=== PATIENT | male | born 1960 | race Caucasian/White ===

== ENCOUNTER 2022-07-08 13:09 | Emergency (ER) | payer OTHER, SELFPAY ==
[2022-07-08 13:26] VITALS: BP 133/81; PULSE 93; RESP 14; TEMP 36.9; O2SAT 98
[2022-07-08] MEDS: TETANUS,DIPHTHERIA,AC PERTUSSIS ADULT (0.5 ML) BOOSTRIX IM (14:03)
--- NOTE | 2022-07-08 14:17 | ED.WOUNDLAC ---
HPI - Wound/Laceration General Chief Complaint: Wound/Laceration Stated Complaint: Right Hand Laceration Time Seen by Provider: 07/08/22 13:40 Source: patient, RN notes reviewed and old records reviewed Mode of arrival: ambulatory Limitations: no limitations History of Present Illness HPI narrative: 61-year-old male presents to the [facility] with complaints of right hand laceration. 5 cm laceration palmar aspect right hand. States that he cut it with a bleed. Unknown last Tdap. Bleeding is controlled. Full range of motion of the thumb in all fingers. Sensation intact. Happened 2 hours prior to arrival Patient tetanus UTD: No Related Data Home Medications Medication Instructions Recorded Confirmed amlodipine 5 mg tablet mg 07/08/22 clopidogrel 75 mg tablet mg 07/08/22 diclofenac sodium 75 mg mg PO 07/08/22 tablet,delayed release empagliflozin 10 mg tablet mg 07/08/22 (Jardiance) glimepiride 2 mg tablet mg 07/08/22 losartan 100 tablet 07/08/22 mg-hydrochlorothiazide 25 mg tablet metoprolol succinate 50 mg mg PO 07/08/22 tablet,extended release 24 hr montelukast 10 mg tablet mg 07/08/22 rosuvastatin 20 mg tablet mg 07/08/22 sitagliptin phosphate 50 tablet 07/08/22 mg-metformin 1,000 mg tablet (Janumet) Allergies Allergy/AdvReac Type Severity Reaction Status Date / Time No Known Allergies Allergy Verified 07/08/22 13:13 Review of Systems Review of Systems: All systems reviewed & are unremarkable except as noted in HPI and below Constitutional: Constitutional: Reports no additional constitutional complaints Eyes: Eyes: Reports no additional eye complaints ENT: Reports system reviewed and no additional complaints, except as documented Cardiovascular: Cardiovascular: Reports no additional cardiovascular complaints, Denies chest pain and Denies dyspnea Respiratory: Respiratory: Reports no additional respiratory complaints, Denies chest congestion, Denies cough and Denies dyspnea Gastrointestinal: Gastrointestinal: Reports no additional gastrointestinal complaints, Denies abdominal pain, Denies nausea and Denies vomiting Musculoskeletal: Musculoskeletal: Reports as per HPI Integumentary/Breasts: Skin/Breast: Reports system reviewed and no additional complaints, except as docu Neurologic: Reports system reviewed and no additional complaints, except as documented Psychiatric: Psychiatric: Reports no additional psychiatric complaints Allergic/Immunologic: Allergic/Immunologic: Reports no additional allergic/immunologic complaints PMFSH Comments At the time of my signature, I reviewed and agree with the nursing past medical, surgical, social, and family history. There is no relevant family history pertinent to the patient complaint. Exam Const: General: cooperative, healthy appearing, comfortable, no acute distress, well developed, alert and well nourished Nutritional Appearance: well nourished Orientation/consciousness: patient oriented x3 Limitations: no limitations HENMT: Head: normal to inspection Ears: hearing grossly normal bilaterally and external ears normal Face/Nose/Sinus: Normal external nose present, Normal nares present, Normal nasal mucous membranes and turbinates present and normal facial exam Face and sinus: normal facial exam Eyes: General: appearance normal, both eyes and all related structures Alignment and Position: alignment normal Periorbital: periorbital findings normal Pupils: Equal, round and reactive pupils present EOM: EOMs intact bilaterally Neck: Neck: normal visual inspection, full ROM, no lymphadenopathy and no meningeal signs Chest: Chest palpation & inspection: normal inspection of the chest Resp: Effort & Inspection: normal respiratory effort and able to speak in complete sentences Auscultation: clear to auscultation bilaterally, no crackles, no rales, no rhonchi and no wheezes Cardio: Rate: regular rate Rhythm: regular rhythm Back/Spi
== END 2022-07-08 14:24 | disposition home or self-care (01) ==
PROVIDERS: Emergency Provider Nurse Practitioner; PCP Nurse Practitioner Family
DX: S61.411A Laceration without foreign body of right hand, initial encounter (principal); W26.9XXA Contact with unspecified sharp object(s), initial encounter; Z23 Encounter for immunization; I25.10 Atherosclerotic heart disease of native coronary artery without angina pectoris; E78.00 Pure hypercholesterolemia, unspecified; I10 Essential (primary) hypertension; I25.2 Old myocardial infarction; Z95.5 Presence of coronary angioplasty implant and graft
CPT/HCPCS: 12002; 90471; 90715; 99202; G0463

== ENCOUNTER 2023-03-04 11:40 | Emergency (ER) | payer OTHER, SELFPAY ==
[2023-03-04 12:00] VITALS: BP 160/85; PULSE 92; RESP 20; TEMP 36.7; O2SAT 100
--- NOTE | 2023-03-04 12:13 | ED.WOUNDLAC ---
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 States he pushed the tooth back into place. Denies LOC, headache, neck pain, dizziness, n/v, or any other injury. Tetanus it UTD. Related Data Home Medications Medication Instructions Recorded Confirmed amlodipine 5 mg tablet mg 07/08/22 clopidogrel 75 mg tablet mg 07/08/22 diclofenac sodium 75 mg mg PO 07/08/22 tablet,delayed release empagliflozin 10 mg tablet mg 07/08/22 (Jardiance) glimepiride 2 mg tablet mg 07/08/22 losartan 100 tablet 07/08/22 mg-hydrochlorothiazide 25 mg tablet metoprolol succinate 50 mg mg PO 07/08/22 tablet,extended release 24 hr montelukast 10 mg tablet mg 07/08/22 rosuvastatin 20 mg tablet mg 07/08/22 sitagliptin phosphate 50 tablet 07/08/22 mg-metformin 1,000 mg tablet (Janumet) Allergies Allergy/AdvReac Type Severity Reaction Status Date / Time No Known Allergies Allergy Verified 07/08/22 13:13 Review of Systems Review of Systems: CONSTITUTIONAL: Denies body aches, fever, chills ENT: Denies rhinorrhea, congestion, sore throat, or otalgia. Reports dental pain and lip lac CARDIOVASCULAR: Denies chest pain, palpitations RESPIRATORY: Denies cough or dyspnea. SKIN: Denies rash, itching, or wounds. MUSCULOSKELETAL: Denies myalgia. NEUROLOGIC: Denies headache, numbness, tingling, or weakness. [facility] Past Medical History Medical History (Updated 03/04/23 @ 14:21 by Xiomara Coe APRN) CAD (coronary artery disease) Diabetes History of PTCA 2 Comments At time of signature, I have reviewed and agree with nursing past medical, surgical, social and family history unless otherwise noted. Please see nursing chart for further information. There is no relevant family history pertinent to the presenting complaint Exam Narrative: GENERAL: Appears in mild pain; no acute distress. EYES: EOMI. No redness or drainage. ENT: Dental fracture location of #7, transverse fracture of the tooth noted, remains intact. Right lower lip laceration with avulsion, bleeding controlled, clean. Total area about 1.5 cm, no indication for suture, no through and through, no involvement of ana border. Mucous membranes pink and moist. TMs normal bilaterally. Throat normal. Uvula midline. NECK: Normal AROM. CHEST: No respiratory distress. Clear to auscultation. HEART: Regular rate and rhythm. No murmur appreciated. SKIN: Warm, dry. NEURO: No focal deficits. Alert and oriented x3. Gait steady. HENMT: Mouth/tongue images: 1. area of avulsion and laceration Teeth image: 1. area of fractured tooth Course Course Emergency Course: Patient is aware of diagnosis, understands and agrees to treatment plan. Anticipatory guidance given. Patient agrees to follow-up as directed and is aware of reasons to seek care at the emergency department. Portions of this record may have been created with voice recognition software Level of Care: Express Care Visit Vital Signs Vital signs: Vital Signs Temperature 98.1 F 03/04/23 12:00 Pulse Rate 92 03/04/23 12:00 Respiratory Rate 20 03/04/23 12:00 Blood Pressure 160/85 H 03/04/23 12:00 Pulse Oximetry 100 03/04/23 12:00 Oxygen Delivery Room Air 03/04/23 12:00 Temperature 98.1 F 03/04/23 12:00 Pulse Rate 92 03/04/23 12:00 Respiratory Rate 20 03/04/23 12:00 Blood Pressure 160/85 H 03/04/23 12:00 Pulse Oximetry 100 03/04/23 12:00 Oxygen Delivery Room Air 03/04/23 12:00 MDM - Wound/Laceration MDM Narrative Medical decision making narrative: Pt present
== END 2023-03-04 12:48 | disposition home or self-care (01) ==
PROVIDERS: Emergency Provider Nurse Practitioner Family; PCP Nurse Practitioner Family
DX: S01.511A Laceration without foreign body of lip, initial encounter (principal); S02.5XXA Fracture of tooth (traumatic), initial encounter for closed fracture; W01.198A Fall on same level from slipping, tripping and stumbling with subsequent striking against other object, initial encounter; I25.10 Atherosclerotic heart disease of native coronary artery without angina pectoris; E11.9 Type 2 diabetes mellitus without complications; Z95.5 Presence of coronary angioplasty implant and graft
CPT/HCPCS: 99212; G0463

== ENCOUNTER 2024-01-05 08:58 | Outpatient (CLI) | payer OTHER, SELFPAY | END 2024-01-05 08:59 | disposition home or self-care (01) | PROVIDERS: PCP Nurse Practitioner Family; Visit Provider Nurse Practitioner | DX: E11.9 Type 2 diabetes mellitus without complications (principal) | CPT/HCPCS: 36415; 83036 ==

== ENCOUNTER 2024-05-17 09:48 | Outpatient (CLI) | payer OTHER, SELFPAY ==
--- OUTSIDE RECORDS SUMMARY | 2024-05-17 10:35 | XMS_ITS | Continuity of Care Document ---
Author Organization [facility] Address [address] [place] [address] Phone Care Team Providers Care It Support Technician Name Role Phone Dalton OD, Rakan Unavailable Unavailable Procedures Procedure Date Eye Exam & Treatment Refraction Eye Exam & Treatment Refraction Optic Nerve Topography Advance Directives Directive Yes / No Effective Date File Name No Information Encounters Encounter Description Practice Location Reason(s) For Visit Diagnoses Date Provider Providers Copied on Encounter [facility], [id number] [place] [address] [address], [place], [place], [id number], tel:[phone] [facility] No Information 5-201 0 Dalton OD Rakan. [address] [facility], [place], [place], [facility], . tel:[phone] [facility], [address] [place] [address] [address], [place], [place], [id number], tel:[phone] [facility] No Information 4-200 7 Dalton OD Rakan. [address], [place], [address], [place]. tel:[phone] Referring Provider: Rakan Rodrigez, [address], [place], [address]. tel:[phone] Family History Family Member Type Diagnosis Age At Onset No Information Payers Payer name Insurance type Covered alliance party ID Authorcarlito rebolledo(s) [employer] SOI CI [id number] Social History Type Description Quantity Date Captured Comments Sex Male Smoking Status No Information Chief Complaint And Reason For Visit No Information Reason For Referral Reason For Referral No Information History Of Present Illness Encounter Date Complaint History Of Prese nt Illness No Information Functional Status Date Functional Assessmen t No Information Instructions Date Instruction Additional Infor mation No Information Assessments Type Assessment Date No Information Patient Care Teams Name Effective Dates (start - stop) Status Members No Information
--- OUTSIDE RECORDS SUMMARY | 2024-05-17 10:35 | XMS_ITS | CONTINUITY OF CARE DOCUMENT ---
Author Name teresa moore Address Unknown Organization [facility] Address [address] [place] [address] Phone [phone] Care Team Providers Care Supervisor Coil Winding Name Role Phone Jose Skaggs MD Unavailable [phone] CARLENE BECERRA MD Unavailable CARLENE BECERRA MD Unavailable [phone] PROBLEMS Condition Status Date Provider Notes CAD S/P STENT TO THE RCA. active Jose byrd MD HTN ESSENTIAL active ? Jose Skaggs MD Hyperlipidemia - PER DR ARECHIGA active Jose Skaggs MD Family History of Hypertension: active ? Anna Skaggs MD Family History of CVA or Stroke: active ? Claudia Skaggs MD Family History of Hypertension: active ? Anna Skaggs MD Diabetes mellitus active Jose Skaggs MD ENCOUNTERS Date Type Provider Location Encounter Diag nosis - In-person encounter Office Visit Jose Skaggs MD [place] [facility] - In-person encounter Office Visit Jose Skaggs MD [place] [facility] - In-person encounter Office Visit Jose Skaggs MD [place] [facility] - In-person encounter Office Visit Jose Skaggs MD [place] [facility] - In-person encounter Office Visit Jose Skaggs MD [place] [facility] - In-person encounter Office Visit Jose Skaggs MD [place] [facility] - In-person encounter Office Visit Jose Skaggs MD [place] [facility] - In-person encounter Office Visit Jose Skaggs MD [place] [facility] Hyperlipidemia - PER DR Dong History of Hypertension:Family History of CVA or Stroke:Family History of Hypertension:Diabetes mellitus - In-person encounter Office Visit Jose Skaggs MD [place] [facility] - In-person encounter Office Visit Jose Skaggs MD [place] [facility] - In-person encounter Office Visit Jose Skaggs MD [place] [facility] CAD S/P STENT TO THE RCA.HTN ESSENTIALHyperlipidemia - PER DR ARECHIGA VITAL SIGNS Date Observation Value Provider Body Mass Index (Ratio) 28.89 kg/m2 Anna Skaggs MD blood pressure, diastolic 87 mm[Hg] Adriane nkLogjunaid blood pressure, systolic 146 mm[Hg] Asha [facility] blood pressure, cuff size regular Ruy blood pressure, diastolic 87 mm[Hg] Ruy mirela blood pressure, systolic 146 mm[Hg] Adam machado pulse rate 100 /min Eduardo oxygen saturation, oximetry 97 % respiratory rate E&M 12 /min Eduardo weight E&M 190 [lb_av] Eduardo height E&M 68 [in_i] Eduardo Body Mass Index (Ratio) 28.76 kg/m2 Anna Skaggs MD blood pressure, diastolic 86 mm[Hg] St ulises Saldivar blood pressure, systolic 120 mm[Hg] Anita zhang Yariel oxygen saturation, oximetry 96 % Gale Yariel pulse rate 97 /min Gale Yariel respiratory rate E&M 18 /min Gale Jay Jay mirza weight E&M 189.2 [lb_av] Gale Yariel height E&M 68 [in_i] Galevicente Saldivar Body Mass Index (Ratio) 29.34 kg/m2 Anna Skaggs MD blood pressure, diastolic 78 mm[Hg] ulises Yariel blood pressure, systolic 136 mm[Hg] Anita zhang Yariel oxygen saturation, oximetry 96 % Gale Yariel pulse rate 93 /min Gale Yariel respiratory rate E&M 18 /min Gale Jay Jay blue weight E&M 193 [lb_av] Gale Yariel height E&M 68 [in_i] Galevicente Saldivar Body Mass Index (Ratio) 29.80 kg/m2 Anna Skaggs MD blood pressure, cuff size large Ke rri Kyara blood pressure, diastolic 80 mm[Hg] Ke rri Kyara blood pressure, systolic 120 mm[Hg] Orin Sparrow oxygen saturation, oximetry 98 % Angelita Sparrow respiratory rate E&M 14 /min Angelita gonzales pulse rate 93 /min Angelita berry weight E&M 196 [lb_av] Angelita Hardy lddmitry height E&M 68 [in_i] Angelita berry Body Mass Index (Ratio) 29.95 kg/m2 Anna Skaggs MD weight E&M 197 [lb_av] Jose Skaggs MD blood pressure, diastolic 86 mm[Hg] Li nkLogic blood pressure, systolic 153 mm[Hg] Asha kLog blood pressure, diastolic 86 mm[Hg] Dilcia iyer Harvey blood pressure, systolic 153 mm[Hg] Kurtis armenta Harvey pulse rate 100 /min Soila goyal oxygen saturation, oximetry 96 % Soila Breaux respiratory rate E&M 16 /min Thelma chau Harvey blood pressure, cuff size large Dilcia iyer Harvey height E&M 68 [in_i] Soila goyal Body Mass Index (Ratio) 30.71 kg/m2 Anna Skaggs MD weight E&M 202 [lb_av] Shelley Singh blood pressure, diastolic 82 mm[Hg] Er ica Meharn blood pressure, systolic 124 mm[Hg] Mercedez dyllan Laurent oxygen saturation, oximetry 96 % Shelley Laurent pulse rate 95 /min Shelley Singh height E&M 68 [in_i] Shelley Singh Body Mass Index (Ratio) 31.17 kg/m2 Anna Skaggs MD blood pressure, cuff size regular Ke rri Kyara blood pressure, diastolic 90 mm[Hg] Ke rri Kyara blood pressure, systolic 156 mm[Hg] Orin Sparrow oxygen saturation, oximetry 98 % Angelita Sparrow respiratory rate E&M 20 /min Angelita gonzales pulse rate 97 /min Angelita berry weight E&M 205 [lb_av] Angelita berry height E&M 68 [in_i] Angelita montezer Body Mass Index (Ratio) 31.56 kg/m2 Anna Skaggs MD blood pressure, resting Yes Dona Heredia blood pressure, diastolic 99 mm[Hg] Shorty Heredia blood pressure, systolic 153 mm[Hg] Delicia Heredia oxygen saturation, oximetry 97 % Radha Heredia respiratory rate E&M 16 /min Primitivo Heredia pulse rate 92 /min Radha Powell sherrycheryl weight E&M 207.6 [lb_av] Radha dudleyon height E&M 68 [in_i] Radha Powell sherrycheryl blood pressure, diastolic 100 mm[Hg] Ruy Blanco RN blood pressure, systolic 162 mm[Hg] David Blanco RN pulse rate 105 /min David Blanco RN oxygen saturation, oximetry 96 % David Blanco RN respiratory rate E&M 20 /min David santos RN Body Mass Index (Ratio) 33.02 kg/m2 David Blanco RN weight E&M 216.4 [lb_av] David Blanco RN Body Mass Index (Ratio) 30.06 kg/m2 Sánchez i Kyara blood pressure, diastolic 74 mm[Hg] Ke rri Kyara blood pressure, systolic 122 mm[Hg] Orin ri Kyara pulse rate 86 /min Angelita Hayley montezer oxygen saturation, oximetry 98 % Angelita Sparrow respiratory rate E&M 17 /min Angelita gonzales weight E&M 197 [lb_av] Angelita montezer height E&M 68 [in_i] Angelita Hardy lder blood pressure, diastolic 72 mm[Hg] Jazmin seph [place] blood pressure, systolic 120 mm[Hg] Cesar eph [place] pulse rate 85 /min [facility] oxygen saturation, oximetry 99 % [facility] respiratory rate E&M 16 /min [facility] weight E&M 202.8 [lb_av] [facility] ALLERGIES Allergy Name Onset Date Reaction Criticality Status SEPTRA Low Criticality active SULFA Low Criticality active RESULTS Date Observation Value Provider Reference Range Interpretation Location microalbumin/creatin ine ratio, urine 11.8 MG/G CREAT [facility] 0.0-30.0 microalbumin, random, urine 1.43 mg/dL [facility] Units converted. See lab report for original value. creatinine, random, urine 121.2 mg/dL [facility] Not Estab. calcium, serum 8.9 mg/dL [facility] 8.7-10.2 carbon dioxide, venous blood 27 mmol/L [facility] 18-29 chloride, serum 96 mmol/L [facility] 96-106 potassium, serum 3.6 mmol/L [facility] 3.5-5.2 sodium, serum 138 mmol/L [facility] 771-201 7920/02/ 09 urea nitrogen/creatinine ratio, serum 15 [facility] 9-20 eGFR if not 85 mL/min/{1 .73_m2} [facility] >59 creatinine, serum 0.98 mg/dL [facility] 0.76-1.27 urea nitrogen, blood 15 mg/dL [facility] 6-24 blood glucose, random 149 mg/dL [facility] 65-99 High lipoprotein, beta, serum, point, quantitative, calculated 115 mg/dL Yulisa Burnham cholesterol, serum 192 mg/dL Yulisa Burnham thyroid stimulating hormone, serum 0.536 u[IU]/mL [facility] alanine aminotransferase (SGPT), serum 33 1/L [facility] aspartate aminotransferase (SGOT), serum 27 1/L [facility] creatinine, serum 0.99 mg/dL [facility] potassium, serum 4.0 mmol/L [facility] sodium, serum 139 mmol/L [facility] platelet count 193 10*3/mm3 [facility] hematocrit, blood 40.3 % [facility] B-type natriuretic peptide 15.9 pg/mL [facility] alanine aminotransferase (SGPT), serum 40 1/L [facility] aspartate aminotransferase (SGOT), serum 24 1/L [facility] creatinine, serum 0.86 mg/dL [facility] potassium, serum 3.4 mmol/L [facility] sodium, serum 137 mmol/L [facility] HISTORY OF MEDICATION USE Medication Status Instructions Dates Provider Indications Com ments clopidogrel 75 mg tablet active Take 1 tablet by mouth once a day Angelita Sparrow rosuvastatin 20 mg tablet active Take 1 tablet by mouth once a day Angelita Sparrow Jardiance 10 mg tablet active 1 tablet by mouth once a day TAKE 1 TABLET BY MOUTH ONCE A DAY Jose Skaggs MD diclofenac sodium 75 mg tablet,delayed release (DR/EC) active Pam SCRUGGS clopidogrel 75 mg tablet completed - Angelita Sparrow rosuvastatin 20 mg tablet completed - Angelita Sparrow losartan-hydroc hlorothiazide 100-25 mg tablet active Soila Breaux montelukast 10 mg tablet active Soila Breaux amlodipine 5 mg tablet active Soila Breaux Norvasc 5 mg tablet completed 1 tablet once a day - Soila Breaux Janumet 50-1,000 mg tablet active twice a day Radha Heredia glimepiride 2 mg tablet active twice a day Radha Yan Hyzaar 100-25 mg tablet completed 1 tablet by mouth once a day - Soila Saeid atorvastatin 20 mg tablet completed 1 tablet once a day - Pam SCRUGGS EFFIENT 10 MG ORAL TABLET completed One tablet daily - Jose Skaggs MD metoprolol succinate 100 mg tablet extended release 24 hr active 1 tablet by mouth once a day Jose Skaggs MD ASPIRIN 81 MG ORAL TABLET active 1 tablet once a day David Blanco RN SOCIAL HISTORY Date Observation Value Provider drug use no Jose Skaggs MD alcohol use, average drinks per day 3 /d Jose Skaggs MD alcohol use, type beer Jose byrd MD alcohol use yes Jose Skaggs MD passive cigarette sm vishal exposure no Jose Skaggs MD smoking status Never smoker Jose Skaggs MD social history reviewed E&M revi ewed - no changes required Jose Skaggs MD drug use no Jose Skaggs MD alcohol use, average drinks per day 3 /d Jose Skaggs MD alcohol use, type beer Jose byrd MD alcohol use yes Jose Skaggs MD social history E&M Marital Statu s: L trinidad alone E thnicity: P atmeghana has never smoked. Smoking History: P atmeghana has never smoked. Jose Skaggs MD physical exercise, frequency, days per week no Gale Saldivar caffeine use, averag e drinks per day yes Gale Saldivar passive cigarette sm vishal exposure no Gale Saldivar smoking status Never smoker Gale Saldivar drug use no Pam SCRUGGS alcohol use, type beer Pamyohan eslf [facility] alcohol use, average drinks per day 3 /d Pam Ventimiglia [facility] alcohol use yes Pam Zhaog ellie [facility] physical exercise, frequency, days per week no Gale Yariel caffeine use, averag e drinks per day yes Gale Yariel passive cigarette sm vishal exposure no Gale Yariel smoking status Never smoker Aglevicente Saldivar social history E&M Marital Statu s: L trin[place] alone E thnicity: P mauro has never smoked. Smoking History: Tc wade has never smoked. Jose Skaggs MD social history reviewed E&M revi ewed - no changes required Jose Skaggs MD physical exercise, frequency, days per week no Angelita Sparrow caffeine use, averag e drinks per day yes Angelita Sparrow passive cigarette sm vishal exposure no Angelita Sparrow smoking status Never smoker Angelita Moira martin social history E&M Marital Statu s: L trinidad alone E thnicity: Tc wade has never smoked. Smoking History: Tc wade has never smoked. Jose Skaggs MD social history reviewed E&M revi ewed - no changes required Jose Skaggs MD physical exercise, frequency, days per week no Soila Breaux caffeine use, averag e drinks per day yes Soila Breaux passive cigarette sm vishal exposure no Soila Breaux smoking status Never smoker Soila Helton drug use no Jose Skaggs MD alcohol use, average drinks per day social Jose Skaggs MD alcohol use yes Jose Skaggs MD social history E&M Marital Statu s: L trinidad alone E thnicity: P atmeghana has never smoked. Smoking History: P atmeghana has never smoked. Jose Skaggs MD physical exercise, frequency, days per week no Shelley Laurent caffeine use, averag e drinks per day yes Shelley Laurent passive cigarette sm vishal exposure no Shelley Laurent smoking status Never smoker Shelley Cummins social history reviewed E&M revi ewed - no changes required Shelley Laurent smoking status Never smoker Jose Skaggs MD social history E&M Marital Statu s: L tr[place] alone E thnicity: P mauro has never smoked. Smoking History: P atmeghana has never smoked. Jose Skaggs MD social history reviewed E&M revi ewed - no changes required Jose Skaggs MD physical exercise, frequency, days per week no Angelita Sparrow alcohol use, average drinks per day 1-3 drinks per day Angelita Sparrow alcohol use no Angelita berry caffeine use, averag e drinks per day yes Angelita Sparrow drug use no Angelita berry passive cigarette sm vishal exposure no Angelita Sparrow number of grandchildren Jose Skaggs MD U marleni Skaggs MD social history E&M Marital Statu s: L trinidad alone E thnicity: P atmeghana has never smoked. Smoking History: P atmeghana has never smoked. Jose Skaggs MD social history reviewed E&M revi ewed - no changes required Jose Skaggs MD physical exercise, frequency, days per week no Radha Heredia alcohol use, average drinks per day 1-3 drinks per day Radha Heredia alcohol use no Radha Powell sherrycheryl caffeine use, averag e drinks per day yes Radha Heredia drug use no Radha Powell sherryon passive cigarette sm vishal exposure no Radha Heredia smoking status Never smoker Jose Skaggs MD social history reviewed E&M reviewed David Blanco RN social history reviewed E&M reviewed David Blanco RN drug use no Angelita Trevinokassidychau lder passive cigarette sm vishal exposure no Angelita Kyara smoking status never smoker Angelita martin social history E&M Marital Statu s: L trin[place] alone E thnicity: David Blanco RN social history reviewed E&M reviewed David Blanco RN physical exercise, frequency, days per week no [facility] caffeine use, averag e drinks per day yes [facility] alcohol use, average drinks per day 1-3 drinks per day [facility] smoking status Non-smoker Link[facility] FUNCTIONAL STATUS Date Observation Value Provider HRA, CV Assess/Plan, Angina (inactive) Management Plan continue current therapy Jose Skaggs MD HRA, CV Assess/Plan, Angina (inactive) Management Plan continue current therapy Jose Skaggs MD HRA, CV Assess/Plan, Angina (inactive) Management Plan continue current therapy Pam Washingtonmiglcarley FASHION DESIGN PROFESSOR HRA, CV Assess/Plan, Angina (inactive) Management Plan continue current therapy Jose Skaggs MD HRA, CV Assess/Plan, Angina (inactive) Management Plan continue current therapy Jose Skaggs MD HRA, CV Assess/Plan, Angina (inactive) Management Plan continue current therapy Jose Skaggs MD HRA, CV Assess/Plan, Angina (inactive) Management Plan continue current therapy Jose Skaggs MD MENTAL STATUS Date Observation Value Provider assessment of judgme nt and insight E&M Alert and oriented to time, place and person. Mood and affect are normal. David Blanco RN assessment of judgme nt and insight E&M Alert and oriented to time, place and person. Mood and affect are normal. David Blanco RN assessment of judgme nt and insight E&M Alert and oriented to time, place and person. Mood and affect are normal. David Blanco RN FAMILY HISTORY Family Member Condition Father Family History of Hy pertension: Father Family History of CV A or Stroke: Mother Family History of Hy pertension: Mother Family History of Di abetes: INSURANCE PROVIDERS Payer name Policy type / Coverage type Amery red libertarian ID [email or web address] [id number] ADVANCE DIRECTIVES Name Date DISCUSSED - NO DECISION MADE TREATMENT PLAN Date Name Performer [id number],C,s/p recent st ent continue dapt Jose Skaggs MD [id number],S, B P today: 120/86 P rior BP: 136/78 (06/09/2022) Labs Reviewed: C reat: 0.98 (03/31/2017) C hol: 192 (03/07/2012) Jose Skaggs MD [id number],C,will check hi s Jose Skaggs MD [id number],C,w ill recheck labs and he is more stringent about diet and is taking Jardiance 10 and other meds Jose Skaggs MD [id number],C,c ontrolled H is updated medication list for this problem includes: Losartan-hydrochlorothiazide 100-25 Mg Tablet (Losartan-hydrochlorothiazide) Amlodipine 5 Mg Tablet (Amlodipine) Metoprolol Succinate 100 Mg Tablet Extended Release 24 Hr (Metoprolol succinate) ..... 1 tablet by mouth once a day Pam Andrey FASHION DESIGN PROFESSOR [id number],C,W ith uncontrolled fasting blood sugars. Glucose was over 250 in the hospital and reports fasting sugars 170-200. Given his CAD he is a good candidate for Jardiance will add to his regimen. Have asked him to follow with PCP for further management. Instructed patient should fasting sugar drop below 120 to decrease glimipiride to daily. Will f/u in 3 mos or sooner if needed. H is updated medication list for this problem includes: Jardiance 10 Mg Tablet (Empagliflozin) ..... 1 tablet by mouth once a day take 1 tablet by mouth once a day Losartan-hydrochlorothiazide 100-25 Mg Tablet (Losartan-hydrochlorothiazide) Glimepiride 2 Mg Tablet (Glimepiride) ..... Twice a day Janumet 50-1,000 Mg Tablet (Sitagliptin phos-metformin) ..... Twice a day Pam Andrey [facility] [id number],C,w ith uncontrolled triglycerides. [facility] x 1 week. Will continue and will f/u in 3 months with lipid panel prior to that visit T he following medications were removed from the medication list: Atorvastatin 20 Mg Tablet (Atorvastatin) ..... 1 tablet once a day His updated medication list for this problem includes: Rosuvastatin 20 Mg Tablet (Rosuvastatin) Pamyohan Washingtonwen [facility] [id number],C,W ith cath 05/25/22. Patent stent to RCA. He had 80% stenosis to OM1 s/p LUTHER. EF of 55-60%. He is doing well. Remains on asa, plavix and statin H is updated medication list for this problem includes: Clopidogrel 75 Mg Tablet (Clopidogrel) Amlodipine 5 Mg Tablet (Amlodipine) Metoprolol Succinate 100 Mg Tablet Extended Release 24 Hr (Metoprolol succinate) ..... 1 tablet by mouth once a day Pam Andrey [facility] [id number],C, B P today: 120/80 P rior BP: 153/86 (03/24/2022) Labs Reviewed: C reat: 0.98 (03/31/2017) C hol: 192 (03/07/2012) His updated medication list for this problem includes: Losartan-hydrochlorothiazide 100-25 Mg Tablet (Losartan-hydrochlorothiazide) Amlodipine 5 Mg Tablet (Amlodipine) Metoprolol Succinate 100 Mg Tablet Extended Release 24 Hr (Metoprolol succinate) ..... 1 tablet by mouth once a day Jose Skaggs MD [id number],C,H ad chest pain, had abnormal stress test, and I would recommend cardiac cath. Jose Skaggs MD [id number],C, T he following medications were removed from the medication list: Hyzaar 100-25 Mg Tablet (Losartan-hydrochlorothiazide) ..... 1 tablet by mouth once a day His updated medication list for this problem includes: Janumet 50-1000 Mg Oral Tablet (Sitagliptin-metformin hcl) ..... Twice daily Glimepiride 2 Mg Oral Tablet (Glimepiride) ..... Twice daily Aspirin 81 Mg Oral Tablet (Aspirin) ..... One tab. daily Hyzaar 100-25 Mg Oral Tablet (Losartan potassium-hctz) ..... 1 tablet by mouth daily Jose Skaggs MD [id number],C, H is updated medication list for this problem includes: Atorvastatin Calcium 20 Mg Oral Tablet (Atorvastatin calcium) ..... One tab daily Jose Skaggs MD [id number],C, B P today: 153/86 P rior BP: 124/82 (12/20/2018) Labs Reviewed: C reat: 0.98 (03/31/2017) C hol: 192 (03/07/2012) The following medications were removed from the medication list: Norvasc 5 Mg Tablet (Amlodipine) ..... 1 tablet once a day Hyzaar 100-25 Mg Tablet (Losartan-hydrochlorothiazide) ..... 1 tablet by mouth once a day His updated medication list for this problem includes: Norvasc 5 Mg Oral Tablet (Amlodipine besylate) ..... One tab. daily Aspirin 81 Mg Oral Tablet (Aspirin) ..... One tab. daily Hyzaar 100-25 Mg Oral Tablet (Losartan potassium-hctz) ..... 1 tablet by mouth daily Metoprolol Succinate Er 100 Mg Oral Tablet Extended Release 24 Hour (Metoprolol succinate) ..... 1 tab po day Jose Skaggs MD [id number],C, H ad an episode of chest pain with SOB and would benefit from a stress nuclear study. Has had an abnormal EKG at baseline. Has a chance of having a false positive stress test, therefore we should proceed with a nuclear scan. Jose Skaggs MD Cardiology: H is updated medication list for this problem includes: Losartan-hydrochlorothiazide 100-25 Mg Tablet (Losartan-hydrochlorothiazide) Amlodipine 5 Mg Tablet (Amlodipine) Metoprolol Succinate 100 Mg Tablet Extended Release 24 Hr (Metoprolol succinate) ..... 1 tablet by mouth once a day BP today: 146/87 P rior BP: 120/86 (09/08/2022) Labs Reviewed: Creat: 0.98 (03/31/2017) C hol: 192 (03/07/2012) LDL: 115 (03/07/2012) Jose Skaggs MD Cardiology:stable, n o angina, continue asa and plavix h ad PCI in May 2022 Jose Skaggs MD Cardiology:The patie nt is on a statin H is updated medication list for this problem includes: Rosuvastatin 20 Mg Tablet (Rosuvastatin) Jose Skaggs MD Cardiology:edgar noguera, patient needs PCP for better management H e would benefit from a continuous glucose monitor Jose Skaggs MD Cardiology:s/p recent stent cont inue dapt Jose Skaggs MD Cardiology: B P today: 120/86 P rior BP: 136/78 (06/09/2022) Labs Reviewed: C reat: 0.98 (03/31/2017) C hol: 192 (03/07/2012) Jose Skaggs MD Cardiology:will check his Jose Skaggs MD Cardiology:will rech sofía labs and he is more stringent about diet and is taking Jardiance 10 and other meds Jose Skaggs MD Cardiology:controlle jay jay H is updated medication list for this problem includes: Losartan-hydrochlorothiazide 100-25 Mg Tablet (Losartan-hydrochlorothiazide) Amlodipine 5 Mg Tablet (Amlodipine) Metoprolol Succinate 100 Mg Tablet Extended Release 24 Hr (Metoprolol succinate) ..... 1 tablet by mouth once a day Pamyohan Balderas [facility] Cardiology:With unco ntrolled fasting blood sugars. Glucose was over 250 in the hospital and reports fasting sugars 170-200. Given his CAD he is a good candidate for Jardiance will add to his regimen. Have asked him to follow with PCP for further management. Instructed patient should fasting sugar drop below 120 to decrease glimipiride to daily. Will f/u in 3 mos or sooner if needed. H is updated medication list for this problem includes: Jardiance 10 Mg Tablet (Empagliflozin) ..... 1 tablet by mouth once a day take 1 tablet by mouth once a day Losartan-hydrochlorothiazide 100-25 Mg Tablet (Losartan-hydrochlorothiazide) Glimepiride 2 Mg Tablet (Glimepiride) ..... Twice a day Janumet 50-1,000 Mg Tablet (Sitagliptin phos-metformin) ..... Twice a day Pamyohan Balderas [facility] Cardiology:with unco ntrolled triglycerides. [facility] 1 week. Will continue and will f/u in 3 months with lipid panel prior to that visit T he following medications were removed from the medication list: Atorvastatin 20 Mg Tablet (Atorvastatin) ..... 1 tablet once a day His updated medication list for this problem includes: Rosuvastatin 20 Mg Tablet (Rosuvastatin) Pamyohan Balderas [facility] Cardiology:With cath 05/25/22. Patent stent to RCA. He had 80% stenosis to OM1 s/p LUTHER. EF of 55-60%. He is doing well. Remains on asa, plavix and statin H is updated medication list for this problem includes: Clopidogrel 75 Mg Tablet (Clopidogrel) Amlodipine 5 Mg Tablet (Amlodipine) Metoprolol Succinate 100 Mg Tablet Extended Release 24 Hr (Metoprolol succinate) ..... 1 tablet by mouth once a day Pam Balderas FASHION DESIGN PROFESSOR Cardiology: B P today: 120/80 P rior BP: 153/86 (03/24/2022) Labs Reviewed: C reat: 0.98 (03/31/2017) C hol: 192 (03/07/2012) His updated medication list for this problem includes: Losartan-hydrochlorothiazide 100-25 Mg Tablet (Losartan-hydrochlorothiazide) Amlodipine 5 Mg Tablet (Amlodipine) Metoprolol Succinate 100 Mg Tablet Extended Release 24 Hr (Metoprolol succinate) ..... 1 tablet by mouth once a day Jose Skaggs MD Cardiology:Had chest pain, had abnormal stress test, and I would recommend cardiac cath. Jose Skaggs MD Cardiology: T he following medications were removed from the medication list: Hyzaar 100-25 Mg Tablet (Losartan-hydrochlorothiazide) ..... 1 tablet by mouth once a day His updated medication list for this problem includes: Janumet 50-1000 Mg Oral Tablet (Sitagliptin-metformin hcl) ..... Twice daily Glimepiride 2 Mg Oral Tablet (Glimepiride) ..... Twice daily Aspirin 81 Mg Oral Tablet (Aspirin) ..... One tab. daily Hyzaar 100-25 Mg Oral Tablet (Losartan potassium-hctz) ..... 1 tablet by mouth daily Jose Skaggs MD Cardiology: H is updated medication list for this problem includes: Atorvastatin Calcium 20 Mg Oral Tablet (Atorvastatin calcium) ..... One tab daily Jose Skaggs MD Cardiology: B P today: 153/86 P rior BP: 124/82 (12/20/2018) Labs Reviewed: C reat: 0.98 (03/31/2017) C hol: 192 (03/07/2012) The following medications were removed from the medication list: Norvasc 5 Mg Tablet (Amlodipine) ..... 1 tablet once a day Hyzaar 100-25 Mg Tablet (Losartan-hydrochlorothiazide) ..... 1 tablet by mouth once a day His updated medication list for this problem includes: Norvasc 5 Mg Oral Tablet (Amlodipine besylate) ..... One tab. daily Aspirin 81 Mg Oral Tablet (Aspirin) ..... One tab. daily Hyzaar 100-25 Mg Oral Tablet (Losartan potassium-hctz) ..... 1 tablet by mouth daily Metoprolol Succinate Er 100 Mg Oral Tablet Extended Release 24 Hour (Metoprolol succinate) ..... 1 tab po day Jose Skaggs MD Cardiology: H ad an episode of chest pain with SOB and would benefit from a stress nuclear study. Has had an abnormal EKG at baseline. Has a chance of having a false positive stress test, therefore we should proceed with a nuclear scan. Jose Skaggs MD Cardiology:Per PCP Jose Skaggs MD Cardiology: H is updated medication list for this problem includes: Atorvastatin Calcium 20 Mg Oral Tablet (Atorvastatin calcium) ..... One tab daily Jose Skaggs MD Cardiology: B P today: 124/82 P rior BP: 156/90 (03/10/2017) Labs Reviewed: C reat: 0.98 (03/31/2017) C hol: 192 (03/07/2012) Jose Skaggs MD Cardiology:Appears s table. Continue medical therapy. H is updated medication list for this problem includes: Norvasc 5 Mg Oral Tablet (Amlodipine besylate) ..... One tab. daily Aspirin 81 Mg Oral Tablet (Aspirin) ..... One tab. daily Metoprolol Succinate Er 100 Mg Oral Tablet Extended Release 24 Hour (Metoprolol succinate) ..... 1 tab po day Will check an echo as he is feeling fatigued and has borderline abnormal EKG. Jose Skaggs MD Cardiology Follow up :Per PCP. W ill check UACR. His updated medication list for this problem includes: Janumet 50-1000 Mg Oral Tablet (Sitagliptin-metformin hcl) ..... Twice daily Glimepiride 2 Mg Oral Tablet (Glimepiride) ..... Twice daily Aspirin 81 Mg Oral Tablet (Aspirin) ..... One tab. daily Hyzaar 100-25 Mg Oral Tablet (Losartan potassium-hctz) ..... 1 tablet by mouth daily Jose Skaggs MD Cardiology Follow up :Per PCP. DIscontinue Simvastatin. S tart atorvastatin 20mg daily. His updated medication list for this problem includes: Simvastatin 40 Mg Oral Tablet (Simvastatin) ..... One tab. daily Jose Skaggs MD Cardiology Follow up :States it is normally better controlled at his PCPs. W ill check echo. BP today: 156/90 P rior BP: 153/99 (01/21/2016) Labs Reviewed: C reat: 0.99 (03/07/2012) C hol: 192 (03/07/2012) Jose Skaggs MD Cardiology Follow up :No chest pains. Stable. His updated medication list for this problem includes: Norvasc 5 Mg Oral Tablet (Amlodipine besylate) ..... One tab. daily Aspirin 81 Mg Oral Tablet (Aspirin) ..... One tab. daily Metoprolol Succinate Er 100 Mg Oral Tablet Extended Release 24 Hour (Metoprolol succinate) ..... 1 tab po day Jose Skaggs MD Cardiology:Will check an echo. U marleni Skaggs MD Cardiology:153/99. W ill start him on Norvasc 5mg to lower pressure. His updated medication list for this problem includes: Norvasc 5 Mg Tabs (Amlodipine besylate) ..... One tab. daily Aspirin 81 Mg Tabs (Aspirin) ..... One tab. daily Hyzaar 100-25 Mg Tabs (Losartan potassium-hctz) ..... 1 tablet by mouth daily Metoprolol Succinate Er 100 Mg [id number] (Metoprolol succinate) ..... 1 tab po day Jose Skaggs MD routine Jose Skaggs MD routine :repeat bp w as 140/90 H is updated medication list for this problem includes: Aspirin 81 Mg Tabs (Aspirin) ..... One tab. daily Hyzaar 100-25 Mg Tabs (Losartan potassium-hctz) ..... 1 tablet by mouth daily Metoprolol Succinate Er 100 Mg [id number] (Metoprolol succinate) ..... 1 tab po day BP today: 162/100 P rior BP: 122/74 (03/01/2012) Labs Reviewed: C reat: 0.99 (03/07/2012) C hol: 192 (03/07/2012) LDL: 115 (03/07/2012) Jose Skaggs MD routine : H is updated medication list for this problem includes: Simvastatin 40 Mg Tabs (Simvastatin) ..... One tab. daily BP today: 162/100 Prior BP: 122/74 (03/01/2012) C HOL: 192 (03/07/2012) LDL: 115 (03/07/2012) Joes Skaggs MD follow up:will rx a stress thallium H is updated medication list for this problem includes: Aspirin 81 Mg Tabs (Aspirin) ..... One tab. daily Toprol Xl 50 Mg [id number] (Metoprolol succinate) ..... Daily Effient 10 Mg Tabs (Prasugrel hcl) ..... One tablet daily Simvastatin 40 Mg Tabs (Simvastatin) ..... One tab. daily BP today: 122/74 Prior BP: 120/72 (08/11/2011) Stress Test: Resting ECG revealed minimal nonspecific ST-segment abnormalities in inferolateralleads, and poor R-wave progression in V3 with the as type of pattern. Resting blood pressure was 132/80 mmHg. Normal heart rate and blood pressure responses with 6 minutes of exercise, having achieved 91 % of target heart rate. Test terminated due to shortness of breath, fatigue, and physiological endpoint. Had no chest pain or cardiac arrhythmias. Had 2 [address]-segment depression in inferior leads and 1.2 to 1.3 mm downsloping in the lateral leads. In the inferior leads, changes especially diagnostic for ischemia. The lateral lead changes also suggestive of ischemia. In view of this abnormality, a Lexiscan Myoview stress test, or preferably a cardiac cath may be considered. - [facility] (07/08/2011) C ardiac Cath: Acute coronary syndrome involving the right coronary artery which is successfully intervened on with a drug-eluting stent after doing thrombectomy. Elevated left ventricular end diastolic pressure. EF 50-55%. Mildly decreased left ventricular function with inferior wall hypokinesis. - [facility] (07/08/2011) C ardiac Cath Comments: Successful 3.0 x 22mm Resolute drug-eluting stent [employer]tr[employer] of the RCA. - [facility] (07/08/2011) C arotid Doppler/Duplex: Normal carotid duplex examination. Vertebral flow is antegrade bilaterally. - [facility] (08/11/2011) H CT: 40.3 (07/08/2011) Platelets: 193 (07/08/2011) C reat: 0.86 (07/08/2011) Na+: 137 (07/08/2011) K+: 3.4 (07/08/2011) O rders: S tress Test - Nuclear (16007) Jose Skaggs MD Hospital follow-up - Carotid and Echo done today: H is updated medication list for this problem includes: Simvastatin 40 Mg Tabs (Simvastatin) ..... One tab. daily BP today: 120/72 Prior BP: / () Jose Skaggs MD Hospital follow-up - Carotid and Echo done today: H is updated medication list for this problem includes: Aspirin 81 Mg Tabs (Aspirin) ..... One tab. daily Hyzaar 100-25 Mg Tabs (Losartan potassium-hctz) ..... 1 tablet by mouth daily Toprol Xl 50 Mg [id number] (Metoprolol succinate) ..... Daily BP today: 120/72 Labs Reviewed: C reat: 0.86 (07/08/2011) Jose Skaggs MD Date Name HEMOGLOBIN A1c LIPID PANEL COMPREHENSIVE METABO LIC PANEL, W/EGFR LIPID PANEL Microalb/Creatinine Urine, Random HEMOGLOBIN A1c COMPREHENSIVE METABO LIC PANEL, W/EGFR Lipoprotein (a) LIPID PANEL PROTHROMBIN TIME WIT H INR LIPID PANEL CBC (INCLUDES DIFF/P LT) BASIC METABOLIC PANE L W/EGFR Cardiac Cath - Left - [facility] Stress Exercise Card iolite Complete Echo Complete Echo URINALYSIS, RANDOM, MICROALB/CREATININE BASIC METABOLIC PANE L W/EGFR Complete Echo Complete Echo Complete Echo THYROID PANEL WITH T SH, 3RD GENERATION LIPID PANEL COMPREHENSIVE METABO LIC PANEL W/EGFR Stress Test - Nuclea r HISTORY OF PROCEDURES Procedure Date Procedure Name Provider Procedure Notes S tatus EKG Jose Skaggs MD completed EKG Jose Skaggs MD completed EKG Jose Skaggs MD completed SNOMED-CT: 92360134 Physical Exam, Performed: Pulse Exam of Foot Jose Skaggs MD completed EKG Jose Skaggs MD completed SNOMED-CT: 350686097 [id number] Current Medications Documented Jose Skaggs MD completed SNOMED-CT: [id number] Physical Exam, Performed: Pulse Exam of Foot Jose Skaggs MD completed EKG Jose Skaggs MD completed SNOMED-CT: [id number] [id number] Current Medications Documented Jose Skaggs MD completed EKG Jose Skaggs MD completed
--- OUTSIDE RECORDS SUMMARY | 2024-05-17 10:35 | XMS_ITS | Clinical Summary ---
Author Organization [facility] Care Team Providers Care Criminal Attorney Name Role Phone Unavailable Primary Care Provider Unavailabl e Social History Tobacco Use Types Packs/Day Years Used Date Smoking Tobacco: Never Assessed Sex and Gender Information Value Date Recorded Sex Assigned at Not on file Legal Sex Male 8:49 AM [employer] Gender Identity Not on file Sexual Orientation Not on file Plan of Treatment Health Maintenance Due Date Last Done Comments Hepatitis C Virus (HCV) Screening 1960 TdaP Immunization 1960 Colonoscopy 07/29/2003 Colorectal Cancer Screening 07/29/2003 Cologuard 2008 Immunochemical Fecal Occult Blood 2008 Pneumococcal Immunization (5 0+ years) (1 of 1 - PCV) 2008 Zoster Immunization (1 of 2) 2008 PSA Discussion 2013 Influenza Immunization (#1) 2023 11/22/2017 SARS-COV-2 Immunization ( - 2023- season) 2023 Respiratory Syncytial Virus (RSV) Immunization (Adult) (1 - 1-dose 75+ series) 2033 Hepatitis B Immunization Aged Out No longer eligible based on patient's age to complete this topic Meningococcal Immunization (ACWY) Aged Out No longer eligible based on patient's age to complete this topic Rotavirus Immunization Aged Out No lo nger eligible based on patient's age to complete this topic
[2024-05-17 11:01] LABS: Alanine Aminotransferase 26 U/L (6-50); Albumin Level 4.8 g/dL (3.5-5.1); Alkaline Phosphatase 85 U/L (38-126); Anion Gap 16 mmol/L (4-12); Aspartate Amino Transferase 24 U/L (17-59); Bilirubin,Total 0.9 mg/dL (0.2-1.3); Blood Urea Nitrogen 25 mg/dL (9-20); Calcium 9.7 mg/dL (8.4-10.2); Carbon Dioxide 22 mmol/L (22-30); Chloride 100 mmol/L (98-107); Estimated Glomerular Filt Rate > 60; Glucose 182 mg/dL (65-110); Sodium 138 mmol/L (137-145)
[2024-05-17 11:06] LABS: Hemoglobin A1C 9.8 % (<5.7)
== END 2024-05-17 09:49 | disposition home or self-care (01) ==
LOC: ANHLAB 09:50
PROVIDERS: PCP Nurse Practitioner Family; Visit Provider Nurse Practitioner
DX: E11.9 Type 2 diabetes mellitus without complications (principal); I10 Essential (primary) hypertension
CPT/HCPCS: 36415; 80053; 83036